=== PATIENT | male | born 1950 | race African-American/Black ===

== ENCOUNTER 2016-11-19 16:43 | Emergency (ER) | payer MEDICARE, OTHER ==
[~2016-11-19] VITALS: Ht 172.7 cm; Wt 77.1 kg
[2016-11-19] MEDS ORDERED: FUROSEMIDE20 M1 ORAL (16:56)
[2016-11-19] MEDS ORDERED: FERROUS SULFAT325 MG ORAL (16:56)
[2016-11-19] MEDS ORDERED: ASPIRIN81 MG ORAL (16:56)
[2016-11-19] MEDS ORDERED: ATORVASTATIN CA40 MG ORAL (16:56)
[2016-11-19] MEDS ORDERED: TAMSULOSIN HCL0.4 MG ORAL (16:56)
[2016-11-19] MEDS ORDERED: HYDRALAZINE HCL25 M1 ORAL (16:56)
[2016-11-19] MEDS ORDERED: CARVEDILOL25 MG ORAL (16:56)
[2016-11-19 17:01] VITALS: BP 106/54
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
[2016-11-20 02:48] VITALS: BP 1/1
== END 2016-11-19 17:25 | disposition left against medical advice (07) ==
LOC: EDBD 16:43 → EMR 17:09
DX: F10.920 Alcohol use, unspecified with intoxication, uncomplicated (principal); F91.8 Other conduct disorders; Z86.59 Personal history of other mental and behavioral disorders; I10 Essential (primary) hypertension; Z88.6 Allergy status to analgesic agent
CPT/HCPCS: 99284